=== PATIENT | male | born 1995 | race Two or more races ===

== ENCOUNTER 2016-07-09 18:58 | Emergency (ER) | payer MEDICAID ==
--- NOTE | ~2016-07-09 | ER ---
PATIENT'S NAME: [facility] 21 Y [address] ROOM: [place] [address] LOCATION: [facility] ADMIT DATE: 07/09/2016 ER/Outpatient Report DISCHARGE DATE: 07/09/2016 FAMILY PHYSICIAN: Curry West MD ATTENDING PHYSICIAN: Solomon Padilla Admission date and time documented on the medical record. I saw the patient at 1910 hours. CHIEF COMPLAINT: Plugged suprapubic urinary catheter. HISTORY OF PRESENT ILLNESS: This patient is a 21-year-old male, who has Duchenne muscular dystrophy and related problems. Brought to the emergency room because of plugged suprapubic catheter. Got the catheter changed 2 weeks ago and it had been irrigated 3-4 times a day. It did finally plugged off this afternoon. Unable to pass urine, so brought to the emergency room for evaluation. No recent colds, coughs, flus, fever, chills, or sweats. No chest pain, shortness of breath, abdominal pain, nausea, vomiting. HOME MEDICATIONS: See attached medication list. ALLERGIES: NONE. SOCIAL HISTORY: Nonsmoker, nondrinker. SIGNIFICANT PAST MEDICAL HISTORY: Cardiomyopathy, Duchenne muscular dystrophy, kyphoscoliosis, paraphimosis, joint contractions, chronic respiratory failure, restrictive lung disease, sleep related hypoventilation on BiPAP, aspiration. OPERATIONS: Suprapubic catheter placement. REVIEW OF SYSTEMS: All systems reviewed by me are negative with the exception of those discussed in the history of present illness. PHYSICAL EXAMINATION: VITAL SIGNS: Temperature 98 and tympanic, pulse 87, respirations 16, blood pressure 120/83, O2 saturation on room air is 93%. PATIENT'S NAME: JACKLYN QUINTANILLAESH Artem [facility] AGE: 21 Y [address] ROOM: [place] [address] LOCATION: [facility] ADMIT DATE: 07/09/2016 ER/Outpatient Report DISCHARGE DATE: 07/09/2016 FAMILY PHYSICIAN: Curry West MD ATTENDING PHYSICIAN: Solomon Padilla ABDOMEN: On examination, the patient's abdomen is soft. A little bit of pressure in the suprapubic area of the bladder. Catheter is in place. We did deflate the catheter balloon, pulled the old catheter out and placed a new catheter in. Inflated the balloon with 10 mL of sterile water. We did not irrigate the catheter. It was draining fine. The replacement catheter was a 20-Moroccan suprapubic catheter. IMPRESSION: Plugged suprapubic catheter with suprapubic catheter replacement. Placed a 20- Moroccan catheter. PLAN: The patient dismissed home. Observation. Activity as tolerated. Continue present home medications and care. Follow up with personal physician or urologist as needed. Discussion ensued with the patient and his parents regarding my findings and recommendations, they understand. MD KAI PENA/modl /[id number] d: 07/10/16 0005 t: 07/10/16 0247, OUTPATIENT REPORT
[~2016-07-09 18:58] MED LIST: ASPIRIN EC81 MG PO; CPAP INH; FLONASE 50 MCG/16 GM NOSE; FLOVENT 110 M110 MCG INH; LYRICA 100MG C100 MG PO; NORCO 5-325 MG1 TAB PO; SINGULAIR10 MG PO; TOPROL XL25 MG PO; ULTRAM50 MG PO; VASOTEC10 MG PO
== END 2016-07-09 19:54 | disposition disaster alternative care site (69) ==
LOC: GMED 18:58
PROC: 0T2BX0Z Change Drainage Device in Bladder, External Approach (ICD-10-PCS; principal; 2016-07-09)
DX: T83.090A Other mechanical complication of cystostomy catheter, initial encounter (principal); J96.10 Chronic respiratory failure, unspecified whether with hypoxia or hypercapnia